=== PATIENT | female | born 1955 | race Caucasian/White ===

== ENCOUNTER 2019-09-29 14:32 | Emergency (ER) | payer MEDICARE, BC ==
[~2019-09-29] VITALS: Ht 160 cm; Wt 75.0 kg
[~2019-09-29 14:32] MED LIST: ACET-1008 PO; CHOL2000 PO; CLOP75TA35 PO; CYAN500T63 PO; DIPH-423 PO; GABA-338 PO; GEMF600T89 PO; HCTZ25T PO; PARO10TA4 PO; PROM25TA14 PO; SENN1TAB89 PO; TEG100T PO; VALS160T2 PO; ZOC40T PO
[2019-09-29 15:39] LABS: BASOPHILS # (AUTO) 0.1 X10'3 (0-0.2); BASOPHILS % (AUTO) 0.5 % (0-1); EOSINOPHILS # (AUTO) 0.3 X10'3 (0-0.9); EOSINOPHILS % (AUTO) 2.5 % (0-6); HEMATOCRIT 33.9 % (35.0-45.0); HEMOGLOBIN 11.3 g/dl (12.0-16.0); LYMPHOCYTES # (AUTO) 3.4 X10'3 (1.1-4.8); LYMPHOCYTES % (AUTO) 28.9 % (21-51); MEAN CORPUSCULAR HEMOGLOBIN 30.5 PG (27.0-31.0); MEAN CORPUSCULAR HGB CONC 33.4 g/dL (33.0-36.5); MEAN CORPUSCULAR VOLUME 91.1 FL (78-98); MEAN PLATELET VOLUME 8.6 FL (7.4-10.4); MONOCYTES % (AUTO) 8.3 % (2-12); NEUTROPHILS % (AUTO) 59.8 % (42-75); PLATELET COUNT 294 X10'3 (140-440); RED BLOOD COUNT 3.72 X10'6 (4.20-5.60); RED CELL DISTRIBUTION WIDTH 12.7 % (11.5-14.5); WHITE BLOOD COUNT 11.7 X10'3 (4.5-11.0)
[2019-09-29 15:54] LABS: CLARITY,URINE CLOUDY (Clear); COLOR,URINE YELLOW (Yellow); GLUCOSE, URINE NEGATIVE (Neg); KETONES,URINE NEGATIVE (Neg); LEUKOCYTE ESTERASE ,URINE LARGE (Neg); NITRITES, URINE NEGATIVE (Neg); OCCULT BLOOD,URINE SMALL (Neg); PH,URINE 5.5 (4.8-8.0); PROTEIN,URINE TRACE mg/dl (Neg); UROBILINOGEN,URINE 0.2 E.U/dL (0.2-1.0)
[2019-09-29 15:55] LABS: ALANINE AMINOTRANSFERASE 25 U/L (12-78); ALBUMIN 3.5 G/DL (3.4-5.0); ALKALINE PHOSPHATASE 120 IU/L (46-116); ANION GAP 9 (8-16); ASPARTATE AMINO TRANSFERASE 23 U/L (10-37); BILIRUBIN,TOTAL 0.2 MG/DL (0.1-1.0); BLOOD UREA NITROGEN 26 MG/DL (7-18); CALCIUM 9.2 MG/DL (8.5-10.1); CHLORIDE 105 MMOL/L (99-107); GLUCOSE 81 MG/DL (70-104); LIPASE 118 U/L (73-393); POTASSIUM 3.6 MMOL/L (3.5-5.1); SODIUM 142 MMOL/L (135-145); TOTAL CARBON DIOXIDE 27.6 MMOL/L (24-32); TOTAL PROTEIN 7.1 G/DL (6.4-8.2); eGFR 56 ML/MIN
[2019-09-29 16:04] LABS: UA COLLECTION TYPE STRAIGHT CATH; WBC,URINE TNTC /HPF (0-4)
[2019-09-29 16:05] LABS: BACTERIA,URINE 4+ /HPF (Neg); MUCUS STRANDS FEW /LPF (Neg); RBC,URINE 0-2 /HPF (0-2); SQUAMOUS EPITHELIAL CELL,UR FEW /LPF (FEW); TRANSITIONAL EPI CELLS,URINE FEW /HPF
[2019-09-29] MEDS ORDERED: traMADol 50MG tablet PO ONE (16:25)
[2019-09-29] MEDS ORDERED: CEPH500C5 PO ×2 (16:43→16:45)
[2019-09-29 17:01] VITALS: BP 126/74
== END 2019-09-29 17:05 | disposition home or self-care (01) ==
LOC: ER 14:33
DX: N39.0 Urinary tract infection, site not specified (principal); F17.200 Nicotine dependence, unspecified, uncomplicated; F12.90 Cannabis use, unspecified, uncomplicated; Z86.73 Personal history of transient ischemic attack (TIA), and cerebral infarction without residual deficits; Z90.710 Acquired absence of both cervix and uterus; Z98.890 Other specified postprocedural states; Z88.6 Allergy status to analgesic agent; Z79.899 Other long term (current) drug therapy
CPT/HCPCS: 36415; 80053; 81001; 83690; 85025; 87088; 99284

== ENCOUNTER 2023-10-10 14:34 | Inpatient (IN) | payer MEDICARE, BC, OTHER, MEDICAID ==
[2023-10-10] VITALS (9 sets, daily range): BP systolic 116–134; BP diastolic 59–73; PULSE 73–81; RESP 10–16; O2SAT 94–96
[~2023-10-10] VITALS: Ht 162.6 cm; Wt 70.0 kg
[~2023-10-10 14:34] MED LIST changes: +CEPH-585 PO; +CLOP75TA34 PO; -CLOP75TA35 PO; -CYAN500T63 PO; +CYAN500T71 PO; -HCTZ25T PO; +HYDR25TA5 PO
[2023-10-10] MEDS ORDERED: iohexol 350MG/ML 100ml bottle IV ONE (14:39)
[2023-10-10 15:09] LABS: BASOPHILS # (AUTO) 0.1 X10'3 (0-0.2); BASOPHILS % (AUTO) 0.8 % (0-1); EOSINOPHILS # (AUTO) 0.2 X10'3 (0-0.9); EOSINOPHILS % (AUTO) 2.6 % (0-6); HEMATOCRIT 36.5 % (35.0-45.0); HEMOGLOBIN 12.2 g/dl (12.0-16.0); LYMPHOCYTES # (AUTO) 3.2 X10'3 (1.1-4.8); MEAN CORPUSCULAR HEMOGLOBIN 28.9 PG (27.0-31.0); MEAN CORPUSCULAR HGB CONC 33.5 g/dL (33.0-36.5); MEAN CORPUSCULAR VOLUME 86.5 FL (78-98); MONOCYTES # (AUTO) 0.6 X10'3 (0-0.9); MONOCYTES % (AUTO) 8.2 % (2-12); NEUTROPHILS # (AUTO) 3.7 X10'3 (1.8-7.7); NEUTROPHILS % (AUTO) 47.4 % (42-75); PLATELET COUNT 304 X10'3 (140-440); RED BLOOD COUNT 4.22 X10'6 (4.20-5.60); RED CELL DISTRIBUTION WIDTH 14.8 % (11.5-14.5); WHITE BLOOD COUNT 7.7 X10'3 (4.5-11.0)
[2023-10-10 15:16] LABS: ALBUMIN 3.3 G/DL (3.4-5.0); ANION GAP 8 (8-16); BLOOD UREA NITROGEN 14 MG/DL (7-18); BUN/CREATININE RATIO 19.4 (10.0-20.0); CALCIUM 8.9 MG/DL (8.5-10.1); CHLORIDE 105 MMOL/L (99-107); CREATININE 0.72 MG/DL (0.40-0.90); GLUCOSE 173 MG/DL (70-104); POTASSIUM 3.6 MMOL/L (3.5-5.1); SODIUM 140 MMOL/L (135-145); TOTAL CARBON DIOXIDE 26.7 MMOL/L (24-32); eCRCL 64 ML/MIN; eGFR 80 ML/MIN
[2023-10-10 15:19] LABS: APTT 29 SECONDS (22-32); INR 1.1 INR; PROTHROMBIN TIME 11.2 SECONDS (9.0-12.0)
[2023-10-10] MEDS: tenecteplase 50mg kit IV ONE (15:28)
[2023-10-10] MEDS: labetalol 20mg/4ml (5mg/ml) syringe IV ONE (15:30)
[2023-10-10] MEDS: morphine 4 MG/ML inj SYRINge IV ONE (16:09)
[2023-10-10] MEDS: niCARDipine-NS 40mg/200ml IVPB 200 ML IV SCH (16:46)
[2023-10-10] MEDS ORDERED: morphine 2 MG/ML inj. syringe IV PRN (17:00)
[2023-10-10] MEDS ORDERED: acetaminophen 325mg tablet PO PRN (17:00)
[2023-10-10] MEDS ORDERED: ondansetron/PF 4mg/2ml inj IV PRN (17:00)
[2023-10-10] MEDS: normal saline 1000ml 1,000 ML IV SCH (17:35)
[2023-10-11] VITALS (47 sets, daily range): BP systolic 111–157; BP diastolic 56–83; PULSE 76–97; RESP 10–19; TEMP 96.2–98.1; O2SAT 91–98
[2023-10-11] MEDS ORDERED: sod chloride 0.9% 10ml flush syringe IV ONE (01:00)
[2023-10-11 06:06] LABS: THYROID STIMULATING HORMONE 0.67 ulU/ml (0.34-4.50)
[2023-10-11 06:07] LABS: HEMOGLOBIN A1C 5.5 % (4.5-6.2)
[2023-10-11 07:10] LABS: BILIRUBIN,URINE NEGATIVE (Neg); CLARITY,URINE CLOUDY (Clear); COLOR,URINE YELLOW (Yellow); GLUCOSE, URINE NEGATIVE (Neg); KETONES,URINE NEGATIVE (Neg); LEUKOCYTE ESTERASE ,URINE MODERATE (Neg); NITRITES, URINE NEGATIVE (Neg); OCCULT BLOOD,URINE TRACE-INTACT (Neg); PH,URINE 6.5 (4.8-8.0); PROTEIN,URINE NEGATIVE (Neg); UROBILINOGEN,URINE 0.2 E.U/dL (0.2-1.0)
[2023-10-11 07:11] LABS: UA COLLECTION TYPE NON-SPECIFIED
[2023-10-11 07:17] LABS: BACTERIA,URINE 2+ /HPF (Neg); SQUAMOUS EPITHELIAL CELL,UR FEW /LPF (FEW); WBC CLUMPS,URINE MODERATE /HPF (NEGATIVE); WBC,URINE TNTC /HPF (0-4)
[2023-10-11 07:18] LABS: RBC,URINE 0-2 /HPF (0-2)
[2023-10-11 07:19] LABS: URINE AMPHETAMINE SCREEN POSITIVE (Neg); URINE BARBITUATE SCREEN NEGATIVE (Neg); URINE BENZODIAZEPINES SCREEN NEGATIVE (Neg); URINE CANNABINOID SCREEN NEGATIVE (Neg); URINE COCAINE SCREEN NEGATIVE (Neg); URINE METHADONE SCREEN NEGATIVE (Neg); URINE PHENCYCLIDINE SCREEN NEGATIVE (Neg)
[2023-10-11] MEDS: morphine 4 MG/ML inj SYRINge IV PRN (08:06)
[2023-10-11] MEDS ORDERED: OXYB15TA19 PO (10:13)
[2023-10-11] MEDS ORDERED: GABA600T13 PO (10:13)
[2023-10-11] MEDS ORDERED: CARB200T8 PO (10:13)
[2023-10-11] MEDS ORDERED: VALS80TA32 PO (10:13)
[2023-10-11] MEDS: losartan 50mg tablet PO SCH (11:22)
[2023-10-11] MEDS: oxybutynin 5mg tablet PO SCH (11:22)
[2023-10-11] MEDS: gabapentin 300mg capsule PO SCH (11:22)
[2023-10-11] MEDS: carBAMazepine 100mg chewable tablet PO SCH (11:23)
[2023-10-11] MEDS: fentaNYL/PF 50MCG/1 ML 2ML syringe IV ONE (15:17)
[2023-10-11] MEDS: midazolam 1 mg/ML 2ml injection IV ONE (15:18)
[2023-10-11] MEDS: clopidogrel 75mg tablet PO SCH (21:08)
[2023-10-12] VITALS (8 sets, daily range): BP systolic 90–148; BP diastolic 57–84; PULSE 73–107; RESP 15–18; TEMP 97.1–98.1; O2SAT 95–98
[2023-10-12] MEDS: atorvastatin 20mg tablet PO SCH (09:14)
[2023-10-12] MEDS ORDERED: ATOR20TA66 PO (10:39)
[2023-10-12] MEDS ORDERED: CLOP75TA34 PO (13:32)
[2023-10-13] VITALS (7 sets, daily range): BP systolic 118–155; BP diastolic 62–92; PULSE 84–102; RESP 14–20; TEMP 96.3–97.8; O2SAT 84–98
[2023-10-14 06:00] VITALS: BP 121/70; PULSE 86; RESP 14; TEMP 96.4; O2SAT 97
[2023-10-14 08:59] VITALS: RESP 18; O2SAT 98
[2023-10-14 10:00] VITALS: BP 140/73; PULSE 90; RESP 18; TEMP 97.7; O2SAT 96
[2023-10-14 18:00] VITALS: BP 160/82; PULSE 92; RESP 18; O2SAT 96
[2023-10-14 20:00] VITALS: RESP 18; O2SAT 96
[2023-10-14 22:00] VITALS: BP 149/70; PULSE 95; RESP 14; TEMP 96.2; O2SAT 97
[2023-10-15] MEDS: magnesium hydroxide 30ml (MOM) UD suspension PO PRN (05:44)
[2023-10-15 06:30] VITALS: BP 156/74; PULSE 85; RESP 15; TEMP 96.7; O2SAT 97
[2023-10-15] MEDS: acetaminophen 325mg tablet PO PRN (07:53)
[2023-10-15 08:00] VITALS: RESP 18; O2SAT 96
[2023-10-15] MEDS: HYDROcodone/acetaminophen 5mg/325mg tablet PO PRN (09:24)
[2023-10-15 10:30] VITALS: BP 152/77; PULSE 87; RESP 17; TEMP 97.7; O2SAT 98
[2023-10-15 13:07] LABS: CHOL/HDL RATIO 4.2 (0.00-4.99); CHOLESTEROL 187 MG/DL (0-200); HDL CHOLESTEROL 45 MG/DL (35-60); LDL CHOLESTEROL 110 MG/DL (50-100); TRIGLYCERIDES 103 MG/DL (20-135)
[2023-10-15 18:00] VITALS: BP 172/82; PULSE 84; RESP 18; TEMP 97.7; O2SAT 99
[2023-10-15 21:30] LABS: EOSINOPHILS # (AUTO) 0.3 X10'3 (0-0.9); HEMOGLOBIN 11.4 g/dl (12.0-16.0); MEAN PLATELET VOLUME 7.7 FL (7.4-10.4); RED BLOOD COUNT 4.01 X10'6 (4.20-5.60); WHITE BLOOD COUNT 8.9 X10'3 (4.5-11.0)
[2023-10-15 21:32] LABS: BASOPHILS % (AUTO) 0.4 % (0-1); EOSINOPHILS % (AUTO) 2.9 % (0-6); LYMPHOCYTES # (AUTO) 3.4 X10'3 (1.1-4.8); LYMPHOCYTES % (AUTO) 37.9 % (21-51); MEAN CORPUSCULAR HEMOGLOBIN 28.5 PG (27.0-31.0); MEAN CORPUSCULAR HGB CONC 32.6 g/dL (33.0-36.5); MEAN CORPUSCULAR VOLUME 87.3 FL (78-98); MONOCYTES # (AUTO) 0.8 X10'3 (0-0.9); MONOCYTES % (AUTO) 9.1 % (2-12); NEUTROPHILS # (AUTO) 4.4 X10'3 (1.8-7.7); NEUTROPHILS % (AUTO) 49.7 % (42-75); PLATELET COUNT 350 X10'3 (140-440); RED CELL DISTRIBUTION WIDTH 14.6 % (11.5-14.5)
[2023-10-15] MEDS: CefTRIAXone/D5W-Rocephin 1gm 50 ML IV SCH (21:35)
[2023-10-15 21:40] LABS: ALANINE AMINOTRANSFERASE 12 U/L (12-78); ALBUMIN 2.5 G/DL (3.4-5.0); ALBUMIN/GLOBULIN RATIO 0.6 (1.1-1.5); ALKALINE PHOSPHATASE 76 IU/L (46-116); ANION GAP 8 (8-16); ASPARTATE AMINO TRANSFERASE 12 U/L (10-37); BILIRUBIN,TOTAL 0.2 MG/DL (0.1-1.0); BLOOD UREA NITROGEN 13 MG/DL (7-18); BUN/CREATININE RATIO 18.8 (10.0-20.0); CHLORIDE 103 MMOL/L (99-107); CREATININE 0.69 MG/DL (0.40-0.90); GLUCOSE 142 MG/DL (70-104); POTASSIUM 3.4 MMOL/L (3.5-5.1); SODIUM 139 MMOL/L (135-145); TOTAL CARBON DIOXIDE 27.9 MMOL/L (24-32); TOTAL PROTEIN 6.8 G/DL (6.4-8.2); eCRCL 66 ML/MIN; eGFR 84 ML/MIN
[2023-10-15 22:00] VITALS: BP 164/88; PULSE 86; RESP 15; TEMP 97.1; O2SAT 98
[2023-10-15] MEDS: lactulose 20gm/30ml cup PO ONE (22:45)
[2023-10-15] MEDS: bisacodyl 10mg suppository rectal RC ONE (22:47)
[2023-10-16 06:00] VITALS: BP 113/85; PULSE 85; RESP 18; TEMP 97.4; O2SAT 100
[2023-10-16 10:00] VITALS: BP 159/88; PULSE 76; RESP 16; TEMP 97.3; O2SAT 99
[2023-10-16 18:00] VITALS: BP 162/95; PULSE 89; RESP 18; TEMP 98.1; O2SAT 96
[2023-10-16 20:56] VITALS: BP 200/93
[2023-10-16 22:00] VITALS: BP 201/99; PULSE 87; RESP 15; TEMP 97.7; O2SAT 97
[2023-10-16 22:02] VITALS: BP 175/105
[2023-10-16] MEDS ORDERED: losartan 25mg tablet PO PRN (23:00)
[2023-10-17 02:00] VITALS: BP 162/91; PULSE 102; RESP 16; TEMP 98.4; O2SAT 98
[2023-10-17 10:00] VITALS: BP 148/78; PULSE 106; RESP 15; TEMP 97.9; O2SAT 97
[2023-10-17 18:00] VITALS: BP 156/84; PULSE 95; RESP 16; TEMP 97.1; O2SAT 98
[2023-10-17 20:00] VITALS: RESP 18; O2SAT 98
[2023-10-17 22:00] VITALS: BP 159/91; PULSE 88; RESP 16; TEMP 98; O2SAT 97
[2023-10-18 06:00] VITALS: BP 99/68; PULSE 89; RESP 16; TEMP 98.1; O2SAT 99
[2023-10-18 08:00] VITALS: BP_SYST 99; PULSE 83; RESP 16; O2SAT 99
[2023-10-18 08:47] VITALS: RESP 16
== END 2023-10-18 10:24 | disposition home or self-care (01) | DRG 62 ==
LOC: ER 14:34 → ED HOLD 17:03 → CICU 2S 19:05 → ORTHO 4S 10-11 17:20
PROVIDERS: ADMIT Internal Medicine Critical Care Medicine; ATTEND Internal Medicine Critical Care Medicine
PROC: 3E03317 Introduction of Other Thrombolytic into Peripheral Vein, Percutaneous Approach (ICD-10-PCS; principal; 2023-10-10)
PROC: B32T1ZZ Computerized Tomography (CT Scan) of Left Pulmonary Artery using Low Osmolar Contrast (ICD-10-PCS; 2023-10-10)
PROC: B3201ZZ Computerized Tomography (CT Scan) of Thoracic Aorta using Low Osmolar Contrast (ICD-10-PCS; 2023-10-10)
PROC: B32S1ZZ Computerized Tomography (CT Scan) of Right Pulmonary Artery using Low Osmolar Contrast (ICD-10-PCS; 2023-10-10)
DX: I63.9 Cerebral infarction, unspecified (principal); N39.0 Urinary tract infection, site not specified; I10 Essential (primary) hypertension; F17.210 Nicotine dependence, cigarettes, uncomplicated; F15.129 Other stimulant abuse with intoxication, unspecified; R47.01 Aphasia; Z88.6 Allergy status to analgesic agent; Z79.899 Other long term (current) drug therapy; Z90.710 Acquired absence of both cervix and uterus; Z83.3 Family history of diabetes mellitus
CPT/HCPCS: 36415; 70450; 70496; 70498; 70544; 70551; 71045; 80048; 80053; 80061; 80305; 80320; 81001; 82948; 83036; 83721; 84443; 84484; 85025; 85610; 85730; 87081; 92508; 92616; 93005; 93306; 93971; 96365; 96375; 97110; 97116; 97161; 97530; 97535; 99291; A4615; A6213; A6449; G0378; J0696; J2250; J2270; J3101; J3490; J7030; Q9967

== ENCOUNTER 2023-10-18 14:03 | Emergency (ER) | payer OTHER, BC, MEDICAID ==
[~2023-10-18] VITALS: Ht 160 cm; Wt 57.7 kg
[~2023-10-18 14:03] MED LIST changes: -ACET-1008 PO; +ATOR20TA66 PO; +CARB200T8 PO; -CEPH-585 PO; -CHOL2000 PO; -CYAN500T71 PO; -DIPH-423 PO; -GABA-338 PO; +GABA600T13 PO; -GEMF600T89 PO; -HYDR25TA5 PO; +OXYB15TA19 PO; -PARO10TA4 PO; -PROM25TA14 PO; -SENN1TAB89 PO; -TEG100T PO; -VALS160T2 PO; +VALS80TA32 PO; -ZOC40T PO
[2023-10-18 14:09] VITALS: TEMP 98.6; O2SAT 97
[2023-10-18 14:42] VITALS: BP 121/69; PULSE 93; RESP 20
[2023-10-18 15:27] LABS: BASOPHILS # (AUTO) 0.3 X10'3 (0-0.2); EOSINOPHILS # (AUTO) 0.1 X10'3 (0-0.9); EOSINOPHILS % (AUTO) 0.4 % (0-6); HEMATOCRIT 39.6 % (35.0-45.0); HEMOGLOBIN 12.9 g/dl (12.0-16.0); LYMPHOCYTES # (AUTO) 1.7 X10'3 (1.1-4.8); LYMPHOCYTES % (AUTO) 9.6 % (21-51); MEAN CORPUSCULAR HEMOGLOBIN 28.3 PG (27.0-31.0); MEAN CORPUSCULAR HGB CONC 32.7 g/dL (33.0-36.5); MEAN CORPUSCULAR VOLUME 86.6 FL (78-98); MEAN PLATELET VOLUME 7.3 FL (7.4-10.4); MONOCYTES # (AUTO) 0.8 X10'3 (0-0.9); MONOCYTES % (AUTO) 4.5 % (2-12); NEUTROPHILS # (AUTO) 14.7 X10'3 (1.8-7.7); NEUTROPHILS % (AUTO) 83.5 % (42-75); PLATELET COUNT 419 X10'3 (140-440); RED BLOOD COUNT 4.57 X10'6 (4.20-5.60); RED CELL DISTRIBUTION WIDTH 14.9 % (11.5-14.5); WHITE BLOOD COUNT 17.6 X10'3 (4.5-11.0)
[2023-10-18 15:44] LABS: ALBUMIN 2.9 G/DL (3.4-5.0); ANION GAP 10 (8-16); BLOOD UREA NITROGEN 14 MG/DL (7-18); BUN/CREATININE RATIO 14.7 (10.0-20.0); CALCIUM 9.4 MG/DL (8.5-10.1); CHLORIDE 100 MMOL/L (99-107); CREATININE 0.95 MG/DL (0.40-0.90); GLUCOSE 124 MG/DL (70-104); POTASSIUM 4.4 MMOL/L (3.5-5.1); PRO BRAIN NATRIURETIC PEPTIDE 153 PG/ML (0-125); SODIUM 137 MMOL/L (135-145); TOTAL CARBON DIOXIDE 27.1 MMOL/L (24-32); eCRCL 46 ML/MIN; eGFR 58 ML/MIN
[2023-10-18 16:16] LABS: BILIRUBIN,URINE NEGATIVE (Neg); CLARITY,URINE CLEAR (Clear); COLOR,URINE YELLOW (Yellow); GLUCOSE, URINE NEGATIVE (Neg); KETONES,URINE NEGATIVE (Neg); LEUKOCYTE ESTERASE ,URINE NEGATIVE (Neg); NITRITES, URINE NEGATIVE (Neg); OCCULT BLOOD,URINE NEGATIVE (Neg); PH,URINE 6.5 (4.8-8.0); PROTEIN,URINE NEGATIVE (Neg); UROBILINOGEN,URINE 0.2 E.U/dL (0.2-1.0)
[2023-10-18 16:21] LABS: UA COLLECTION TYPE STRAIGHT CATH
== END 2023-10-18 18:45 | disposition home or self-care (01) ==
LOC: ER 14:03
DX: R55 Syncope and collapse (principal); R47.81 Slurred speech; I63.9 Cerebral infarction, unspecified; M25.561 Pain in right knee; Z88.6 Allergy status to analgesic agent; Z79.899 Other long term (current) drug therapy; Z79.1 Long term (current) use of non-steroidal anti-inflammatories (NSAID); Z90.710 Acquired absence of both cervix and uterus
CPT/HCPCS: 36415; 70450; 71045; 72125; 73564; 80048; 81003; 83880; 84145; 84484; 85025; 87088; 93005; 99285